=== PATIENT | male | born 1965 | race Hispanic/Latino ===

== ENCOUNTER → 2024-05-22 | Outpatient (REF) | payer BC ==
[~2024-05-22] MED LIST: CRESTOR40 MG PO; LISINOPRIL10 MG PO; METFORMIN HCL500 MG PO; TRESIBA100 UNIT/1 SC
== END ==
LOC: RAD 12:51 → EDSTATUS 07-01 09:00
PROVIDERS: ATTEND Internal Medicine Gastroenterology
DX: Z01.818 Encounter for other preprocedural examination (principal); Z12.11 Encounter for screening for malignant neoplasm of colon
CPT/HCPCS: 93005

== ENCOUNTER → 2024-07-01 | Day surgery (SDC) | payer BC ==
[~2024-07-01] MED LIST changes: +FENTANYL CITRATE/PF 100MCG/2 ML INJ ONE; +GLYCOPYRROLATE INJ 0.2 MG/ML VIAL ONE; +HYOSCYAMINE SULFATE 0.5 MG/ML INJ ONE; +KETAMINE HCL INJ 50 MG/ML 10 ML VIAL ONE; +LIDOCAINE HCL 2% LOCAL INJ 5 ML SDV VIAL INJ ONE; +ONDANSETRON HCL INJ 2MG/ML 2ML 2 MG/ML VIAL ONE; +PROPOFOL IV EMULSION 10 MG/ML 20 ML VIAL ONE; +PROPOFOL IV EMULSION 50 ML IV ONE
[2024-07-01] MEDS: LACTATED RINGER'S 1,000 ML ONE (07:19)
[2024-07-01] MEDS: INSULIN REGULAR, HUMAN 100 UNIT/1 ML ONE (07:51)
[2024-07-01 10:11] VITALS: TEMP 97.6
[2024-07-01 10:35] VITALS: BP 136/87; PULSE 76; RESP 18; O2SAT 100
== END | disposition home or self-care (01) ==
LOC: OR 06:00
PROVIDERS: ATTEND Internal Medicine Gastroenterology
DX: Z12.11 Encounter for screening for malignant neoplasm of colon (principal); K63.5 Polyp of colon; K57.30 Diverticulosis of large intestine without perforation or abscess without bleeding; K64.8 Other hemorrhoids; K21.9 Gastro-esophageal reflux disease without esophagitis; I10 Essential (primary) hypertension; E10.9 Type 1 diabetes mellitus without complications; M06.9 Rheumatoid arthritis, unspecified; M19.90 Unspecified osteoarthritis, unspecified site; Z79.84 Long term (current) use of oral hypoglycemic drugs; Z79.4 Long term (current) use of insulin; Z79.899 Other long term (current) drug therapy; Z68.27 Body mass index [BMI] 27.0-27.9, adult
CPT/HCPCS: 36415; 45380; 45385; 82948; J1980; J2003; J2405; J2704 ×2; J3010; J7121